=== PATIENT | female | born 1975 ===

== ENCOUNTER 2017-10-04 09:43 | Outpatient (CLI) | payer OTHER | END 2017-10-04 13:02 | disposition home or self-care (01) | LOC: LAB 09:43 | DX: R50.9 Fever, unspecified (principal) ==

== ENCOUNTER 2018-08-10 16:13 | Outpatient (CLI) | payer OTHER | END 2018-08-10 16:14 | disposition home or self-care (01) | LOC: LAB 16:13 | DX: D64.89 Other specified anemias (principal); E11.9 Type 2 diabetes mellitus without complications; E78.49 Other hyperlipidemia; K76.89 Other specified diseases of liver; E03.8 Other specified hypothyroidism; E55.9 Vitamin D deficiency, unspecified; R29.898 Other symptoms and signs involving the musculoskeletal system ==

== ENCOUNTER 2018-08-18 15:10 | Emergency (ER) | payer OTHER ==
[~2018-08-18] VITALS: Ht 160 cm; Wt 57.2 kg
== END 2018-08-18 21:39 | disposition home or self-care (01) ==
LOC: ER 15:10
DX: R10.11 Right upper quadrant pain (principal)

== ENCOUNTER 2019-05-04 12:49 | Outpatient (CLI) | payer OTHER | END 2019-05-04 15:00 | disposition home or self-care (01) | LOC: LAB 12:49 | DX: J11.1 Influenza due to unidentified influenza virus with other respiratory manifestations (principal) ==

== ENCOUNTER 2019-05-08 07:57 | Outpatient (CLI) | payer OTHER | END 2019-05-08 08:09 | disposition home or self-care (01) | LOC: LAB 07:57 | DX: D50.8 Other iron deficiency anemias (principal); N92.4 Excessive bleeding in the premenopausal period; L41.3 Small plaque parapsoriasis; D51.8 Other vitamin B12 deficiency anemias; I10 Essential (primary) hypertension; D55.0 Anemia due to glucose-6-phosphate dehydrogenase [G6PD] deficiency; D51.1 Vitamin B12 deficiency anemia due to selective vitamin B12 malabsorption with proteinuria; D51.0 Vitamin B12 deficiency anemia due to intrinsic factor deficiency; D68.0 Von Willebrand disease; R97.0 Elevated carcinoembryonic antigen [CEA]; R97.8 Other abnormal tumor markers; D59.0 Drug-induced autoimmune hemolytic anemia; E03.8 Other specified hypothyroidism ==

== ENCOUNTER → 2019-06-15 08:43 | Outpatient (CLI) | payer OTHER | END | disposition home or self-care (01) | LOC: LAB 08:43 | DX: D50.8 Other iron deficiency anemias (principal); N92.4 Excessive bleeding in the premenopausal period; L41.3 Small plaque parapsoriasis; D51.8 Other vitamin B12 deficiency anemias; I10 Essential (primary) hypertension; D68.8 Other specified coagulation defects; D68.0 Von Willebrand disease ==

== ENCOUNTER 2019-08-31 08:25 | Outpatient (CLI) | payer OTHER | END 2019-08-31 14:47 | disposition home or self-care (01) | LOC: LAB 08:25 | DX: D50.0 Iron deficiency anemia secondary to blood loss (chronic) (principal); N92.4 Excessive bleeding in the premenopausal period; D68.0 Von Willebrand disease; L41.3 Small plaque parapsoriasis; D68.8 Other specified coagulation defects; I10 Essential (primary) hypertension; D25.9 Leiomyoma of uterus, unspecified ==

== ENCOUNTER 2019-10-02 14:14 | Outpatient (CLI) | payer OTHER | END 2019-10-02 14:18 | disposition home or self-care (01) | LOC: LAB 14:14 | DX: J11.1 Influenza due to unidentified influenza virus with other respiratory manifestations (principal); R05 Cough ==

== ENCOUNTER 2020-07-29 13:38 | Outpatient (CLI) | payer OTHER | END 2020-07-29 13:39 | disposition home or self-care (01) | LOC: PPH VACUNA 13:38 | DX: Z23 Encounter for immunization (principal) ==

== ENCOUNTER → 2020-11-25 | Emergency (ER) | payer OTHER ==
[~2020-11-25] VITALS: Ht 160 cm; Wt 58.1 kg
== END | disposition left against medical advice (07) ==
LOC: ER 14:33
DX: B34.9 Viral infection, unspecified (principal); J32.8 Other chronic sinusitis